=== PATIENT | male | born 1995 ===

== ENCOUNTER 2019-03-22 22:39 | Emergency (ER) | payer SELFPAY ==
[~2019-03-22] VITALS: Ht 170.2 cm; Wt 71.8 kg
[2019-03-22 22:43] VITALS: TEMP 98.7
[2019-03-22 23:48] VITALS: BP 110/73; PULSE 81
== END 2019-03-22 23:55 | disposition home or self-care (01) ==
LOC: COL.ER 22:39
DX: R06.02 Shortness of breath (principal); F41.9 Anxiety disorder, unspecified